=== PATIENT | female | born 1980 | race African-American/Black ===

== ENCOUNTER 2017-11-02 22:42 | Emergency (ER) | payer SELFPAY ==
[~2017-11-02] VITALS: Ht 149.9 cm; Wt 54.4 kg
[2017-11-02] MEDS ORDERED: IBUPROFEN600 MG ORAL (22:52)
[2017-11-02 22:55] VITALS: BP 141/91
--- NOTE | 2017-11-03 00:29 | Emergency Room Report ---
History of Present Illness General Chief Complaint: Pain Source: Patient Present Illness HPI Patient presents with painful hemorrhoids. She had them initially when (19 years ago). Then worsened in March. Denies passing blood. More passing mucousy material. Pain is 6/10, worse when sitting. In March, treated with cream. Was not as severe then. No fevers, chills, NV, dysuria. Not now. No URI sy. Some stress with move to [place], but now with job and place to stay. Allergies: Coded Allergies: BANANA (Verified Allergy, Unknown, 11/02/17) Patient History Past Medical History: see triage record Social History Narrative recent move to [place] Last Menstrual Period: 09/25/17 Now: No : 2 Para: 1 Reviewed Nursing Documentation: PMH: Agreed, PSxH: Agreed Nursing Documentation-PMH Past Medical History: No Stated History Review of Systems All Other Systems: negative except mentioned in HPI Physical Exam Vital Signs Date Time Temp Pulse Resp B/P (MAP) Pulse Ox O2 Delivery O2 Flow Rate FiO2 11/02/17 22:49 98.2 101 14 141/91 97 Room Air Sp02 EP Interpretation: reviewed, normal General Appearance: well appearing, no apparent distress, GCS 15 Head: normocephalic Eyes: bilateral eye normal inspection, bilateral eye PERRL ENT: moist mucus membranes Neck: supple Respiratory: lungs clear, normal breath sounds Cardiovascular #1: regular rate, rhythm Cardiovascular #2: 2+ radial (R) Gastrointestinal: normal inspection, normal bowel sounds, non tender, no mass, non-distended, scaphoid Rectal: hemorrhoids - multiple, some thrombosed, no prolapse, other - no bleeding Musculoskeletal: back normal, gait/station normal, normal range of motion Neurologic: alert, oriented x3, grossly normal Psychiatric: mood/affect normal Skin: normal inspection, warm/dry Medical Decision Making Diagnostic Impression: Primary Impression: Hemorrhoids Qualified Codes: K64.3 - Fourth degree hemorrhoids ER Course Patient presents with hemorrhoids. DDx; perirectal abscess, hemorrhoids - thrombosed. No evidence of infection or prolapse at this time. Due to the number and distribution, this patient needs surgical intervention, however, not needing this immediately. Initially, will treat with medications for swelling and pain. Advised patient to go to [facility] or [place] as she has recently moved to area. Last Vital Signs Date Time Temp Pulse Resp B/P (MAP) Pulse Ox O2 Delivery O2 Flow Rate FiO2 11/03/17 00:40 98.2 101 14 141/91 97 Room Air Status: unchanged Disposition: HOME, SELF-CARE Condition: Stable Scripts Benzocaine (AMERICAINE) 28 Gm Oint...g. 1 APPLIC TP Q6HR Y for For Pain, #30 GM Prov: Garth Hayes M.D. 11/03/17 Hydrocortisone Acetate* (ANUSOL-HC*) 25 Mg Supp.rect 1 SUPP RECTAL TWICE A DAY for 10 Days, #20 SUPP 1 Refill Prov: Garth Hayes M.D. 11/03/17 Referrals: NOT CHOSEN EMIL/,REFERRING (PCP) Garth Hayes M.D. Nov 03, 2017 00:28
[2017-11-03] MEDS ORDERED: ANUSOL-HC25 MG RECTAL (00:33)
[2017-11-03] MEDS ORDERED: AMERICAINE28 G1 TP (00:33)
[2017-11-03 00:40] VITALS: BP 141/91
== END 2017-11-03 00:30 | disposition home or self-care (01) ==
LOC: EMR 23:00
DX: K64.5 Perianal venous thrombosis (principal)
CPT/HCPCS: 99282